=== PATIENT | female | born 1990 | race Hispanic/Latino ===

== ENCOUNTER 2017-07-16 19:40 | Emergency (ER) | payer MEDICAID ==
[2017-07-16 19:48] VITALS: BP 129/83; PULSE 97; RESP 18; TEMP 98; O2SAT 97
--- NOTE | 2017-07-16 19:51 | C.PDOC ---
History Of Present Illness 26 year old female presents to ED with complaints of cough for one week. She reports cough in nonproductive and associated with nasal congestion and sore throat. She tried taking OTC Delsym with minimal relief. Denies any fever, chest pain or SOB. Time Seen by Provider: 07/16/17 19:46 Chief Complaint (Nursing): Cough, Cold, Congestion History Per: Patient History/Exam Limitations: no limitations Onset/Duration Of Symptoms: Days (7) Current Symptoms Are (Timing): Still Present Location Of Pain: Throat Sick Contacts (Context): None Associated Symptoms: Cough Ear Symptoms: Bilateral: None Past Medical History Reviewed: Historical Data, Nursing Documentation, Vital Signs Vital Signs: Last Vital Signs Temp 98 F 07/16/17 19:44 Pulse 97 H 07/16/17 19:44 Resp 18 07/16/17 19:44 BP 129/83 07/16/17 19:44 Pulse Ox 97 07/16/17 19:51 - Medical History PMH: Asthma, Migraine - [facility] Procedures APPLICATION OF SPLINT (01/16/04) IMMOBILIZ/WOUND ATTN NEC (05/30/03) OTHER CAST APPLICATION (11/21/01) Family History: States: Unknown Family Hx - Social History Hx Tobacco Use: Yes Hx Alcohol Use: Yes Hx Substance Use: No - Immunization History Hx Tetanus Toxoid Vaccination: No Hx Influenza Vaccination: No Hx Pneumococcal Vaccination: No Review Of Systems Constitutional: Negative for: Fever, Weakness, Malaise Eyes: Negative for: Vision Change, Redness ENT: Positive for: Nose Congestion, Throat Pain. Negative for: Ear Pain Cardiovascular: Negative for: Chest Pain, Palpitations Respiratory: Positive for: Cough, Pleuritic Pain. Negative for: Shortness of Breath, Sputum, Wheezing Gastrointestinal: Positive for: Abdominal Pain. Negative for: Vomiting, Diarrhea Genitourinary: Negative for: Dysuria Skin: Negative for: Rash Neurological: Negative for: Headache Physical Exam - Physical Exam Appears: Non-toxic, No Acute Distress Skin: Warm, Dry Head: Atraumatic, Normacephalic Eye(s): bilateral: Normal Inspection, EOMI Ear(s): Bilateral: Normal (no eyrthema) Nose: Normal Oral Mucosa: Moist Neck: Normal ROM Cardiovascular: Rhythm Regular, No Murmur Respiratory: Normal Breath Sounds, No Accessory Muscle Use, No Rales, No Rhonchi , No Wheezing Gastrointestinal/Abdominal: Soft, No Tenderness Extremity: Bilateral: Atraumatic, Normal Color And Temperature, Normal ROM Neurological/Psych: Oriented x3, Normal Speech Gait: Steady ED Course And Treatment O2 Sat by Pulse Oximetry: 97 Medical Decision Making Medical Decision Makin26 year old with cough and congestion. Patient appears nontoxic and in no acute respiratory distress. She has no fever and lungs are clear bilaterally. No clinical signs of pneumonia or sepsis. Symptoms likely viral. Will discharge with rx Disposition Counseled Patient/Family Regarding: Diagnosis, Need For Followup, Rx Given - Disposition Referrals: Kristy Garay MD [Primary Care Provider] - Disposition: HOME/ ROUTINE Disposition Time: 19:50 Condition: GOOD Additional Instructions: You have viral upper respiratory infection. Take Tylenol or Motrin alternating every 4-6 hours for Fever 100.4F or higher. Rest and drink plenty of fluids. May use cool mist humidifier or vaporizer in room. Try taking over the counter antihistamine (Claritin, Jody, Zyrtec), Decongestant or Cough medicine ( Mucinex) as needed every 6-8 hours. Follow up with your primary medical doctor or clinic in 1 week for further evaluation. Prescriptions: Prednisone 50 mg PO DAILY #4 tablet Promethazine DM [Phenergan DM Syrup] 10 ml PO Q8 PRN #300 ml PRN Reason: Cough Instructions: Upper Respiratory Infection (ED) Forms: [facility] (Chinese) - POA Present On Arrival: None - Clinical Impression Clinical Impression: Upper respiratory infection
== END 2017-07-16 20:23 | disposition home or self-care (01) ==
LOC: SUPCPDRO 19:40 → C.ER 19:40
DX: J06.9 Acute upper respiratory infection, unspecified (principal); Z87.891 Personal history of nicotine dependence

== ENCOUNTER 2017-08-04 13:54 | Emergency (ER) | payer MEDICAID ==
[2017-08-04 14:11] VITALS: RESP 18
[2017-08-04] MEDS ORDERED: Sodium Chloride 0.9% 1,000 ML IV ONE (15:30)
[2017-08-04] MEDS ORDERED: Sodium Chloride 0.9% 1,000 ML ONE (15:58)
--- NOTE | 2017-08-04 16:03 | C.PDOC ---
History Of Present Illness 26 year old female presents to the ED for evaluation of multiple episodes of vomiting and diarrhea that started today. Patient states she has been drinking Gatorade today and is still vomiting and passing watery nonbloody stool every 30 minutes. Patient states both her children at home were sick with the same symptoms recently. Patient denies any pain, fever, back pain, dysuria, hematuria. Time Seen by Provider: 08/04/17 15:27 Chief Complaint (Nursing): GI Problem History Per: Patient History/Exam Limitations: no limitations Onset/Duration Of Symptoms: Hrs Current Symptoms Are (Timing): Still Present Severity: None Location Of Pain/Discomfort: Diffuse Radiation Of Pain To:: None Quality Of Discomfort: "Pain" Associated Symptoms: Vomiting, Diarrhea, Loss Of Appetite. denies: Urinary Symptoms Last Bowel Movement: Today Recent travel outside of the [place]: No Additional History Per: Patient Abnormal Vaginal Bleeding: No Past Medical History Reviewed: Historical Data, Nursing Documentation, Vital Signs Vital Signs: Last Vital Signs Temp 98.0 F 08/04/17 14:08 Pulse 108 H 08/04/17 14:08 Resp 18 08/04/17 14:08 BP 107/71 08/04/17 14:08 Pulse Ox 98 08/04/17 16:06 - Medical History PMH: Asthma, Migraine Surgical History: No Surg Hx - [facility] Procedures APPLICATION OF SPLINT (01/16/04) IMMOBILIZ/WOUND ATTN NEC (05/30/03) OTHER CAST APPLICATION (11/21/01) Family History: States: Unknown Family Hx - Social History Hx Tobacco Use: Yes Hx Alcohol Use: Yes Hx Substance Use: No - Immunization History Hx Tetanus Toxoid Vaccination: No Hx Influenza Vaccination: No Hx Pneumococcal Vaccination: No Review Of Systems Constitutional: Negative for: Fever, Chills Cardiovascular: Negative for: Chest Pain, Palpitations Respiratory: Negative for: Cough, Shortness of Breath Gastrointestinal: Positive for: Vomiting, Abdominal Pain, Diarrhea. Negative for: Constipation Musculoskeletal: Negative for: Neck Pain Skin: Negative for: Rash Neurological: Negative for: Weakness, Numbness Physical Exam - Physical Exam Appears: Non-toxic, No Acute Distress Skin: Normal Color, Warm, Dry Head: Atraumatic, Normacephalic Nose: No Discharge Oral Mucosa: Moist Neck: Normal ROM, Supple Chest: Symmetrical Cardiovascular: Rhythm Regular (tachycardic), No Murmur Respiratory: Normal Breath Sounds, No Rales, No Rhonchi, No Wheezing Extremity: Normal ROM, No Pedal Edema, No Calf Tenderness, No Swelling Neurological/Psych: Oriented x3, Normal Speech, Normal Cognition Gait: Steady ED Course And Treatment - Laboratory Results Result Diagrams: 08/04/17 16:05 08/04/17 16:05 Lab Interpretation: No Acute Changes (urine concentrated) Urine POC: Negative O2 Sat by Pulse Oximetry: 98 (On RA) Pulse Ox Interpretation: Normal Reevaluation Time: 17:34 Reassessment Condition: Improved (after IV fluids and Zofran.) Medical Decision Making Medical Decision Making: Impression : 26 y/o female presents with multiple episodes of vomit, diarrhea. Plan: * Blood work * IV fluids * Zofran 4 mg IVP * UA Disposition Counseled Patient/Family Regarding: Studies Performed, Diagnosis, Need For Followup, Rx Given - Disposition Referrals: Monty Gomez MD [Staff Provider] - Disposition: HOME/ ROUTINE Disposition Time: 17:35 Condition: IMPROVED Prescriptions: Dicyclomine [Bentyl] 20 mg PO QID PRN #20 tab PRN Reason: Pain, Severe (8-10) Ondansetron ODT [Zofran ODT] 1 odt PO QID PRN #10 odt PRN Reason: Nausea/Vomiting Instructions: Gastroenteritis (ED) Forms: [facility] (Azeri) - Clinical Impression Clinical Impression: Gastroenteritis - Scribe Statement The provider has reviewed the documentation as recorded by the Scribe Chuck Powers All medical record entries made by the Scribe were at my direction and personally dictated by me. I have reviewed the chart and agree that the record accurately reflects my personal performance of the history, physical exam, medical decision making, and the department course for this patient. I have also personally directed, reviewed, and agree with the discharge instructions and disposition.
[2017-08-04 16:09] LABS: BASO % 0.4 % (0.0-2.0); EOS # 0.1 K/uL (0.0-0.7); EOS % 0.8 % (0.0-4.0); HEMATOCRIT 45.2 % (34.0-47.0); LYMPH # 0.4 K/uL (1.0-4.3); LYMPH % 3.9 % (20.0-40.0); MEAN CELL VOLUME 91.4 fL (81.0-99.0); MEAN CORPUSCULAR HEMOGLOBIN 31.7 pg (27.0-31.0); MEAN CORPUSCULAR HGB CONC 34.6 g/dL (33.0-37.0); MEAN PLATELET VOLUME 8.9 fL (7.2-11.7); MONO # 0.4 K/uL (0.0-0.8); MONO % 4.1 % (0.0-10.0); PLATELET COUNT 228 K/uL (130-400); RED CELL DISTRIBUTION WIDTH 13.6 % (11.5-14.5); WHITE BLOOD COUNT 10.8 K/uL (4.8-10.8)
[2017-08-04 16:26] LABS: ALB/GLOB RATIO 1.7 (1.0-2.1); ALKALINE PHOSPHATASE 59 U/L (38-126); ALT/SGPT 27 U/L (9-52); AST/SGOT 19 U/L (14-36); BILIRUBIN,TOTAL 0.9 mg/dL (0.2-1.3); BLOOD UREA NITROGEN 16 mg/dL (7-17); CALCIUM 8.5 mg/dl (8.6-10.4); CARBON DIOXIDE 24 mmol/L (22-30); CHLORIDE 102 mmol/L (98-107); GFR AFRICAN-AMERICAN > 60; GLUCOSE,RANDOM 103 mg/dL (65-105); POTASSIUM 4.2 mmol/L (3.6-5.2); RBC URINE 1 /hpf (0-3); SODIUM 134 mmol/L (132-148); TOTAL PROTEIN 6.6 g/dL (6.3-8.3); URINE BACTERIA RARE (<OCC); URINE BILIRUBIN NEGATIVE (NEGATIVE); URINE BLOOD NEGATIVE (NEGATIVE); URINE COLOR Yellow (YELLOW); URINE GLUCOSE (UA) NORMAL (Normal); URINE KETONE NEGATIVE (NEGATIVE); URINE LEUKOCYTE ESTERASE NEG Leu/uL (Negative); URINE PROTEIN NEGATIVE (NEGATIVE); URINE UROBILINOGEN NORMAL mg/dL (0.2-1.0); WBC URINE 2 /hpf (0-5)
[2017-08-04 18:03] VITALS: BP 101/61; PULSE 74; TEMP 98.8; O2SAT 99
[2017-08-04 18:50] LABS: BASOPHIL 1 % (0-2); EOSINOPHIL 1 % (0-4); NEUTROPHIL 80 % (50-75); TOTAL CELLS COUNTED 100
[2017-08-04 18:51] LABS: LARGE PLATELETS PRESENT
== END 2017-08-04 18:05 | disposition home or self-care (01) ==
LOC: C.ER 13:54
DX: K52.9 Noninfective gastroenteritis and colitis, unspecified (principal); Z87.891 Personal history of nicotine dependence
CPT/HCPCS: 80053; 81001; 84703; 85025; 96361; 96374; 99283; J2405; J7040

== ENCOUNTER 2017-11-25 22:40 | Emergency (ER) | payer MEDICAID ==
[2017-11-25 23:08] VITALS: RESP 14; TEMP 97.4
--- NOTE | 2017-11-25 23:58 | C.PDOC ---
History Of Present Illness 27 year old female presents to the ER with a complaint of a rash that began a few days ago to her legs and has now spread throughout the body. Patient denies sick contacts, recent travel, Hx of eczema, difficulty breathing, or difficulty swallowing. Time Seen by Provider: 11/25/17 23:08 Chief Complaint (Nursing): Abnormal Skin Integrity History Per: Patient History/Exam Limitations: no limitations Onset/Duration Of Symptoms: Days Current Symptoms Are (Timing): Still Present Location Of Injury: Right: Chest, Leg, Left: Leg, Posterior: Back Quality Of Symptoms: Itching Recent travel outside of the [place]: No Past Medical History Reviewed: Historical Data, Nursing Documentation, Vital Signs Vital Signs: Last Vital Signs Temp 97.4 F L 11/26/17 00:02 Pulse 80 11/26/17 00:02 Resp 14 11/26/17 00:02 BP 110/70 11/26/17 00:02 Pulse Ox 100 11/26/17 00:02 - Medical History PMH: Asthma, Migraine - [facility] Procedures APPLICATION OF SPLINT (01/16/04) IMMOBILIZ/WOUND ATTN NEC (05/30/03) OTHER CAST APPLICATION (11/21/01) Family History: States: Unknown Family Hx - Social History Hx Tobacco Use: Yes Hx Alcohol Use: Yes Hx Substance Use: No - Immunization History Hx Tetanus Toxoid Vaccination: No Hx Influenza Vaccination: No Hx Pneumococcal Vaccination: No Review Of Systems Constitutional: Negative for: Fever, Chills ENT: Negative for: Mouth Swelling, Throat Swelling Skin: Positive for: Rash Physical Exam - Physical Exam Appears: Non-toxic Skin: Warm, Dry, Rash (Diffuse maculopapular to lower extremities and back at different stages. Well demarcated erythematous with scaly border to right chest. ) Head: Atraumatic, Normacephalic Eye(s): bilateral: Normal Inspection Oral Mucosa: Moist Chest: Symmetrical, No Tenderness Cardiovascular: Rhythm Regular Respiratory: Normal Breath Sounds, No Accessory Muscle Use, No Stridor, No Wheezing Neurological/Psych: Oriented x3, Normal Speech ED Course And Treatment O2 Sat by Pulse Oximetry: 99 (Room air) Pulse Ox Interpretation: Normal Progress Note: Benadryl and prednisone administered. Patient reports improvement of itchiness and rash, she is resting comfortably in the ER in no acute distress, will discharge home with Rx and instructions to follow up with PMD or return if symptoms worsen. Disposition Counseled Patient/Family Regarding: Diagnosis, Need For Followup, Rx Given - Disposition Referrals: Kristy Garay MD [Staff Provider] - Disposition: HOME/ ROUTINE Disposition Time: 23:54 Condition: STABLE Additional Instructions: Please follow up with pMD for dermatology referral Take meds as directed Return to ER if worse Prescriptions: Clotrimazole 1% Cream [Lotrimin 1%] 1 appl TP BID #1 tube DiphenhydrAMINE [Benadryl] 25 mg PO QID #20 cap Triamcinolone 0.1% [Triamcinolone 0.1% Cream] 1 appl TP BID #120 g Instructions: Skin Rash (DC) Forms: [facility] (Korean), Work Excuse - Clinical Impression Clinical Impression: Dermatitis, Tinea corporis - PA / AGRICULTURAL ENGINEERING TECHNOLOGIST / Resident Statement MD/DO has reviewed & agrees with the documentation as recorded. - Scribe Statement The provider has reviewed the documentation as recorded by the Scribjolanta Ravi All medical record entries made by the Itzibjolanta were at my direction and personally dictated by me. I have reviewed the chart and agree that the record accurately reflects my personal performance of the history, physical exam, medical decision making, and the department course for this patient. I have also personally directed, reviewed, and agree with the discharge instructions and disposition.
[2017-11-26 00:04] VITALS: BP 110/70; PULSE 80
[2017-11-26 00:46] VITALS: O2SAT 99
== END 2017-11-26 00:04 | disposition home or self-care (01) ==
LOC: C.ER 22:40
DX: L30.9 Dermatitis, unspecified (principal); B35.4 Tinea corporis

== ENCOUNTER 2018-08-18 18:08 | Emergency (ER) | payer MEDICAID ==
[2018-08-18 18:35] VITALS: BP 112/68; PULSE 80; RESP 18; TEMP 98.4; O2SAT 98
--- NOTE | 2018-08-18 19:04 | C.PDOC ---
History Of Present Illness 27 y/o female with PMH of asthma and migraines presents to ED c/o right sided neck and upper back spasm x 3 days. Pt napped on 09/15, and upon waking, experienced muscle spasm to right neck and upper back. Pain is worse with movement and palpation. Took 800mg ibuprofen this afternoon without relief. Pt has experienced pain like this in the past, states this is similar. Denies fever, chills, headache, N/V, rash, vision changes, dizziness, abdominal pain, chest pain, SOB, numbness, weakness, paresthesias, or any other associated complaints. Time Seen by Provider: 08/18/18 18:35 Chief Complaint (Nursing): Upper Extremity Problem/Injury Past Medical History Reviewed: Historical Data, Nursing Documentation, Vital Signs Vital Signs: Last Vital Signs Temp 98.4 F 08/18/18 18:32 Pulse 80 08/18/18 18:32 Resp 18 08/18/18 18:32 BP 112/68 08/18/18 18:32 Pulse Ox 98 08/18/18 18:32 - Medical History PMH: Asthma, Migraine - [facility] Procedures APPLICATION OF SPLINT (01/16/04) IMMOBILIZ/WOUND ATTN NEC (05/30/03) OTHER CAST APPLICATION (11/21/01) Family History: States: Unknown Family Hx - Social History Hx Tobacco Use: Yes Hx Alcohol Use: Yes Hx Substance Use: No - Immunization History Hx Tetanus Toxoid Vaccination: No Hx Influenza Vaccination: No Hx Pneumococcal Vaccination: No Review Of Systems Except As Marked, All Systems Reviewed And Found Negative. Constitutional: Negative for: Fever, Chills, Weakness Eyes: Negative for: Vision Change, Redness ENT: Negative for: Throat Pain, Throat Swelling Cardiovascular: Negative for: Chest Pain, Palpitations, Light Headedness Respiratory: Negative for: Cough, Shortness of Breath Gastrointestinal: Negative for: Nausea, Vomiting, Abdominal Pain Musculoskeletal: Positive for: Neck Pain, Back Pain. Negative for: Arm Pain, Leg Pain Skin: Negative for: Rash Neurological: Negative for: Weakness, Numbness, Seizures, Altered Mental Status, Headache, Dizziness Physical Exam - Physical Exam Appears: Well, Non-toxic, No Acute Distress Skin: Normal Color, Warm, Dry Head: Atraumatic, Normacephalic, No Tenderness Eye(s): bilateral: Normal Inspection, PERRL, EOMI Ear(s): Bilateral: Normal Nose: Normal Oral Mucosa: Moist Throat: Normal Neck: Normal, Decreased ROM (decreased secondary to spasm), Trachea Midline, No Midline Cervical Tenderness, Paracervical Tenderness (bilateral, R>L), No Step Off Deformity, Supple, Other (NO meningeal signs, Negative kernigs and brudzinski) Lymphatic: Normal Exam Cardiovascular: Rhythm Regular Respiratory: Normal Breath Sounds Gastrointestinal/Abdominal: Normal Exam, Bowel Sounds (normoactive), Soft, No Tenderness Back: Normal Inspection, No CVA Tenderness, No Vertebral Tenderness, Muscle Spasm (right cervical paraspinal and right trapezius), Paraspinal Tenderness (right cervical paraspinal and right trapezius) Extremity: Normal ROM, No Tenderness, No Calf Tenderness, Capillary Refill (<2s), No Deformity, No Swelling Extremity: Bilateral: Atraumatic, No Pedal Edema, Normal Color And Temperature, Normal ROM Pulses: Left Radial: Normal, Right Radial: Normal, Left Dorsalis Pedis: Normal, Right Dorsalis Pedis: Normal Neurological/Psych: Oriented x3, Normal Speech, Normal Cognition, Normal Cranial Nerves, Normal Motor, Normal Sensation Gait: Steady ED Course And Treatment O2 Sat by Pulse Oximetry: 98 Medical Decision Making Medical Decision Making: Initial Plan: * Tylenol * Valium * Cervical Spine XR Cervical spine XR shows decreased lordosis suggestive of muscle spasm, as read by me. No fracture or misalignment. 20:30 Patient reports significantly decreased pain and stiffness after medications. Case discussed with, and patient evaluated at bedside by Dr. Avila, who recommends discharge home with ibuprofen and outpatient followup. Diagnostic testing results and plan of care discussed with patient. Strict instructions given regarding prescription use, importance of followup, and signs/symptoms to return to ER including worsening pain, N/V, fever, headache, or any other new/worsening symptoms. Pt verbalized understanding of discussion. Patient is A&Ox3, ambluating with steady gait, with vital signs stable for discharge. Disposition - Disposition Referrals: Lynnette Vega MD [Staff Provider] - Disposition: HOME/ ROUTINE Disposition Time: 21:00 Condition: GOOD Additional Instructions: naproxen daily for pain with food flexeril every 8 hours as needed for spasm, do not take before driving Ice the affected area Followup with orthopedic within 2 days Followup with primary doctor within 2 days Prescriptions: Cyclobenzaprine [Flexeril] 5 mg PO Q8H PRN #12 tab PRN Reason: Muscle Spasm Naproxen [Naprosyn] 500 mg PO DAILY PRN #14 tablet PRN Reason: Pain, Moderate (4-7) Instructions: Muscle Spasms (DC) Forms: General Discharge Instructions, [facility] (Turkish), Work Excuse - Clinical Impression Clinical Impression: Muscle spasm
--- NOTE | 2018-08-19 11:09 | RAD ---
Date of service: 08/18/2018 PROCEDURE: Cervical Spine Radiographs. HISTORY: Pain. COMPARISON: None available. FINDINGS: BONES: There is mild reversal of normal cervical lordosis. Vertebral alignment is normal. There is no acute fracture or traumatic anterior listhesis. Bone mineralization is normal. The craniocervical junction is normal. The atlantoaxial joint is normal. DISC SPACES: Normal. SOFT TISSUES: Normal. No prevertebral soft tissue swelling. OTHER FINDINGS: None. IMPRESSION: No acute fracture or traumatic anterior listhesis. Mild reversal of normal cervical lordosis may be related to muscle spasm.
== END 2018-08-18 21:07 | disposition home or self-care (01) ==
LOC: C.ER 18:08
DX: M62.838 Other muscle spasm (principal)